=== PATIENT | male | born 1990 ===

== ENCOUNTER 2017-04-21 10:13 | Emergency (ER) | payer OTHER ==
[2017-04-21 10:38] VITALS: BMI 25.7
--- NOTE | 2017-04-21 12:38 | ED PDOC ---
HPI: General Adult Time Seen by Provider: 04/21/17 10:38 Chief Complaint (Nursing): Breast Problem History Per: Patient, Cmo (Chinese 64985) Additional Complaint(s): Pt. has had R sided breast pain and swelling > 1 year. States symptoms became worse over the past week prompting ED visit. States he has been evaluated for this in the past in this ED and had an US which was negative. Pt. admits that he never f/u after being discharged from the ED. Denies nipple discharge, fever , trauma, SOB, family hx of breast CA, rash. Past Medical History Vital Signs: Last Vital Signs Temp 97.8 F 04/21/17 10:35 Pulse 72 04/21/17 10:35 Resp 16 04/21/17 10:35 BP 141/89 04/21/17 10:35 Pulse Ox 100 04/21/17 10:35 - Family History Family History: States: Unknown Family Hx - Home Medications Home Medications: Ambulatory Orders Medication Instructions Recorded Cephalexin [Keflex] 500 mg PO BID #10 cap 09/29/15 Dicyclomine [Bentyl] 20 mg PO Q12 PRN #20 tab 01/21/16 Ondansetron ODT [Zofran ODT] 4 mg PO Q6 PRN #16 odt 01/21/16 Naproxen [Naprosyn] 500 mg PO BID PRN #30 tab 04/21/17 - Allergies Allergies/Adverse Reactions: Allergies Allergy/AdvReac Type Severity Reaction Status Date / Time No Known Allergies Allergy Verified 04/05/14 11:36 Review of Systems ROS Statement: Except As Marked, All Systems Reviewed And Found Negative Physical Exam - Physical Exam Appears: Positive for: Well, Non-toxic, No Acute Distress Skin: Positive for: Normal Color, Warm. Negative for: Rash Eye Exam: Positive for: Normal appearance Cardiovascular/Chest: Positive for: Regular Rate, Rhythm, Other (R breast slightly enlarged compared to L without tenderness, erythema, warmth, nipple discharge, skin changes, fluctuance, or induration) Respiratory: Positive for: CNT, Normal Breath Sounds Gastrointestinal/Abdominal: Positive for: Normal Exam, Soft. Negative for: Tenderness Back: Positive for: Normal Inspection. Negative for: L CVA Tenderness, R CVA Tenderness Extremity: Positive for: Normal ROM Neurologic/Psych: Positive for: Alert, Oriented - ECG O2 Sat by Pulse Oximetry: 100 - Progress ED Course And Treament: Pt. advised to f/u with [facility] for further evaluation and possible mammogram and evaluation by breast surgeon. Disposition - Clinical Impression Clinical Impression: Gynecomastia, male - Patient ED Disposition Is Patient to be Admitted: No - Disposition Referrals: [facility] [Outside] [facility] [Outside] Disposition: Routine/Home Disposition Time: 12:00 Condition: STABLE Prescriptions: Naproxen [Naprosyn] 500 mg PO BID PRN #30 tab PRN Reason: Pain Instructions: Gynecomastia (ED)
[2017-04-21 12:51] VITALS: BP 122/68; PULSE 81; RESP 15; TEMP 97.9; O2SAT 99
== END 2017-04-21 12:51 | disposition home or self-care (01) ==
LOC: H.ER 10:13
DX: N62 Hypertrophy of breast (principal)
CPT/HCPCS: 96372; 99283; J1885